=== PATIENT | female | born 1945 ===

== ENCOUNTER 2021-07-27 06:17 | Day surgery (SDC) | payer OTHER ==
[~2021-07-27] VITALS: Ht 149.9 cm; Wt 56.7 kg
== END 2021-07-27 14:25 | disposition home or self-care (01) ==
LOC: CIR.AMB 06:17
PROVIDERS: ATTEND Orthopaedic Surgery
DX: M75.122 Complete rotator cuff tear or rupture of left shoulder, not specified as traumatic (principal); M75.22 Bicipital tendinitis, left shoulder; M75.112 Incomplete rotator cuff tear or rupture of left shoulder, not specified as traumatic; Z91.041 Radiographic dye allergy status; B19.20 Unspecified viral hepatitis C without hepatic coma; Z20.822 Contact with and (suspected) exposure to COVID-19